=== PATIENT | female | born 1940 | race Asian ===

== ENCOUNTER 2023-08-20 10:36 | Emergency (ER) | payer OTHER ==
[2023-08-20 10:40] VITALS: RESP 18; BMI 29.2
[2023-08-20] MEDS ORDERED: ACETAMINOPHEN 325 MG TABLET (FP) ONE (12:37)
[2023-08-20] MEDS ORDERED: LIDOCAINE 4% PATCH TP ONE (12:37)
[2023-08-20] MEDS ORDERED: METHOCARBAMOL 500 MG TABLET ONE (12:38)
[2023-08-20] MEDS: ACETAMINOPHEN 500 MG TABLET (FP) PO ONE (12:41)
[2023-08-20] MEDS: METHOCARBAMOL 500 MG TABLET PO ONE (12:42)
[2023-08-20] MEDS: LIDOCAINE 4% PATCH TP ONE (12:42)
[2023-08-20 13:46] VITALS: BP 154/61; PULSE 60; TEMP 98
[2023-08-20] MEDS ORDERED: LIDOCAINE PATCH REMOVAL MC SCH (22:00)
== END 2023-08-20 13:47 | disposition home or self-care (01) ==
LOC: JERFT 10:36 → JER 10:36 → JERFT 13:47
DX: M79.604 Pain in right leg (principal)
CPT/HCPCS: 73590-TC-RT-FY; 73610-TC-RT-FY; 73630-TC-RT-FY; 93971-TC; 99283-25